=== PATIENT | female | born 1990 | race African-American/Black ===

== ENCOUNTER 2019-04-09 10:21 | Emergency (ER) | payer MEDICAID ==
[~2019-04-09] VITALS: Ht 165.1 cm; Wt 117.9 kg
[2019-04-09 10:40] VITALS: BP 102/64
--- NOTE | 2019-04-09 10:40 | NUR ---
ED Nurse Note: walked in to Ed due to cough for 1 week. no travel within 30 days. no fever or chills. respirations even and non-labored noted. wheezing audiable. pt able to speak full sentence without difficulty. maintaine >94% of pulse oximetry in room air. skin warm to touch. no open wound noted. will wait for the further order.
[2019-04-09] MEDS ORDERED: GUAIFENESIN DM118 M1 ORAL (11:27)
[2019-04-09] MEDS ORDERED: ALBUTEROL SULF8.5 GM INH (11:28)
[2019-04-09 11:56] VITALS: BP 111/71
--- NOTE | 2019-04-09 11:57 | NUR ---
ER DISCHARGE NOTE: Patient is cleared to be discharged per ERMD, pt is aox4, on room air, with stable vital signs. pt was given dc and prescription instructions, pt was able to verbalize understanding, pt id band removed without complications. pt is able to ambulate with steady gait. pt took all belongings.
--- NOTE | 2019-05-05 10:30 | Emergency Room Report ---
History of Present Illness General Chief Complaint: Flu Like Symptoms Source: Patient Present Illness HPI Patient is a 28-year-old female presents after increased cough and congestion. Patient had cough with clear sputum intermittently. Some prior history of reactive airway disease. Denies any fever. Denies shortness of breath or chest pain. Denies any leg pain or swelling. Denies hemoptysis. Allergies: Coded Allergies: No Known Allergies (Unverified , 04/09/19) Patient History Past Medical History: see triage record Last Menstrual Period: 03/2019 Now: No : 5 Para: 4 Reviewed Nursing Documentation: PMH: Agreed; PSxH: Agreed Nursing Documentation-PMH Hx Asthma: Yes Review of Systems All Other Systems: negative except mentioned in HPI Physical Exam General Appearance: well appearing, no apparent distress, obese Head: normocephalic, atraumatic ENT: hearing grossly normal, normal voice, other - Rhinorrhea Neck: full range of motion, supple Respiratory: chest non-tender, lungs clear, no respiratory distress, speaking full sentences Cardiovascular #1: normal inspection, no edema Gastrointestinal: normal inspection Musculoskeletal: normal inspection, normal range of motion, no calf tenderness Neurologic: alert, motor strength/tone normal, piece marker small arms III-XII nml as tested, oriented x3, normal gait Psychiatric: normal inspection, mood/affect normal Skin: no rash Medical Decision Making Diagnostic Impression: Primary Impression: Viral respiratory infection ER Course Patient presented for cough. Differential diagnosis included but was not limited to bronchitis, pneumonia, pulmonary embolism, pericarditis, asthma, foreign body. Patient has a benign exam and does not appear to require any imaging or laboratory testing at this time. Patient appears to have a viral respiratory illness. She was given prescriptions for medications for symptomatic treatment. Does not appear to be any respiratory distress. Patient was advised to follow-up with her primary care physician for recheck. The patient is advised to follow up with primary care doctor in 1-2 days. Patient is advised to return if any worsening condition or if any changes in status that are concerning. This report is dictated with [employer] import specialist software which may occasionally lead to discrepancies related to use of this software. Status: improved Disposition: HOME, SELF-CARE Condition: Stable Scripts Albuterol Sulfate* (ALBUTEROL SULFATE MDI*) 8.5 Gm Hfa.aer.ad 2 PUFF INH Q6H, #1 EA 0 Refills Prov: Stevenson Branham MD 04/09/19 Guaifenesin/Dextromethorphan* (Guaifenesin Dm Syrup*) 5 Ml Syrup 5 ML ORAL Q6H PRN for FOR COUGH, #118 ML Prov: Stevenson Branham MD 04/09/19 Patient Instructions: Viral Respiratory Infection Stevenson Branham MD May 05, 2019 10:30
== END 2019-04-09 11:57 | disposition home or self-care (01) ==
LOC: EMR 10:55
DX: R05 Cough (principal)
CPT/HCPCS: 99282